=== PATIENT | female | born 1980 | race Caucasian/White ===

== ENCOUNTER 2020-08-22 10:49 | Emergency (ER) | payer OTHER ==
[~2020-08-22 10:49] MED LIST: ASPIR 8181 MG PO; IBUPROFEN800 MG PO; MEDROL DOSEPAK 24 MG PO; NITROSTAT0.4 MG SL; PREDNISONE 50 M50 MG PO; PROAIR DIGIHAL90 MCG INH; Voltaren Gel 1% TOP; ZOFRAN ODT 4 MG4 MG SL
[2020-08-22 13:36] LABS: HEMOGLOBIN 13.9 gm/dl (12.3-15.3); RED BLOOD COUNT 5.03 M/UL (4.00-5.10); WHITE BLOOD COUNT 10.8 K/UL (4.5-11.0)
[2020-08-22 14:08] LABS: BUN/CREATININE RATIO 16 (0-10)
== END 2020-08-22 17:40 | disposition home or self-care (01) ==
LOC: ER1 10:49
PROVIDERS: Physician Assistant Medical
DX: R07.9 Chest pain, unspecified (principal); M79.605 Pain in left leg; M79.89 Other specified soft tissue disorders; I50.9 Heart failure, unspecified; F17.290 Nicotine dependence, other tobacco product, uncomplicated
CPT/HCPCS: 71046; 80053; 82550; 82553; 83874; 84484; 84703; 85025; 85379; 93005; 93971; 99285

== ENCOUNTER 2020-11-09 02:45 | Emergency (ER) | payer OTHER ==
[2020-11-09 03:21] LABS: HEMOGLOBIN 12.3 gm/dl (12.3-15.3); RED BLOOD COUNT 4.56 M/UL (4.00-5.10)
[2020-11-09 03:46] LABS: BUN/CREATININE RATIO 20 (0-10)
[2020-11-09] MEDS ORDERED: VIBRAMYCIN100 MG PO (08:05)
[2020-11-09] MEDS ORDERED: PROVENTIL HFA6.7 GM INH (08:05)
== END 2020-11-09 08:37 | disposition home or self-care (01) ==
LOC: ER1 02:45
PROVIDERS: Physician Assistant
DX: J40 Bronchitis, not specified as acute or chronic (principal); L03.116 Cellulitis of left lower limb; L03.115 Cellulitis of right lower limb; Z20.822 Contact with and (suspected) exposure to COVID-19; R07.2 Precordial pain; I50.9 Heart failure, unspecified; F17.200 Nicotine dependence, unspecified, uncomplicated
CPT/HCPCS: 71045; 80053; 82550; 82553; 83874; 83880; 84484; 85025; 93005; 94664; 94760; 99285; U0002

== ENCOUNTER 2021-08-01 07:57 | Emergency (ER) | payer OTHER ==
[~2021-08-01 07:57] MED LIST changes: +PROVENTIL HFA6.7 GM INH; +VIBRAMYCIN100 MG PO
[2021-08-01 08:50] LABS: HEMOGLOBIN 12.7 gm/dl (12.3-15.3); RED BLOOD COUNT 4.79 M/UL (4.00-5.10); WHITE BLOOD COUNT 11.5 K/UL (4.5-11.0)
[2021-08-01 09:15] LABS: BUN/CREATININE RATIO 17 (0-10)
[2021-08-01] MEDS ORDERED: LASIX20 MG PO (12:16)
== END 2021-08-01 12:35 | disposition home or self-care (01) ==
LOC: ER1 07:57
PROVIDERS: Emergency Medicine
DX: R07.9 Chest pain, unspecified (principal); R60.0 Localized edema; F17.200 Nicotine dependence, unspecified, uncomplicated
CPT/HCPCS: 71045; 80048; 83880; 84484; 85025; 93005; 99285

== ENCOUNTER 2021-08-27 16:17 | Emergency (ER) | payer OTHER ==
[~2021-08-27 16:17] MED LIST changes: +LASIX20 MG PO
[2021-08-27 17:07] LABS: HEMOGLOBIN 14.7 gm/dl (12.3-15.3); RED BLOOD COUNT 5.63 M/UL (4.00-5.10); WHITE BLOOD COUNT 10.9 K/UL (4.5-11.0)
[2021-08-27 17:31] LABS: BUN/CREATININE RATIO 15 (0-10)
[2021-08-27] MEDS ORDERED: ZOFRAN ODT 4 MG4 MG PO (19:57)
== END 2021-08-27 20:10 | disposition home or self-care (01) ==
LOC: ER1 16:17
PROVIDERS: Physician Assistant
DX: R10.9 Unspecified abdominal pain (principal); R11.2 Nausea with vomiting, unspecified; R10.812 Left upper quadrant abdominal tenderness; M54.9 Dorsalgia, unspecified; F17.200 Nicotine dependence, unspecified, uncomplicated
CPT/HCPCS: 80053; 81001; 83690; 85025; 96374; 99284; J2405; Q9967